=== PATIENT | female | born 1975 | race Caucasian/White ===

== ENCOUNTER 2016-09-24 20:25 | Emergency (ER) | payer SELFPAY ==
[2016-09-24] MEDS ORDERED: SODIUM CHLORIDE 0.9% 1,000 ML ONE (22:12)
[2016-09-24] MEDS ORDERED: ED CLINDAMYCIN PREMIX 50 ML IV ONE (23:09)
== END 2016-09-25 00:13 | disposition home or self-care (01) ==
LOC: ER 20:25
DX: K08.89 Other specified disorders of teeth and supporting structures (principal); K02.9 Dental caries, unspecified; K04.7 Periapical abscess without sinus; E03.9 Hypothyroidism, unspecified; F17.210 Nicotine dependence, cigarettes, uncomplicated; Z79.899 Other long term (current) drug therapy
CPT/HCPCS: 36415; 80053; 83605; 85025; 96361; 96365